=== PATIENT | female | born 1985 | race Two or more races ===

== ENCOUNTER 2023-08-04 02:12 | Emergency (ER) | payer MEDICAID, OTHER ==
[~2023-08-04] VITALS: Ht 154.9 cm; Wt 138.0 kg
[2023-08-04 03:13] LABS: Urine Bacteria FEW /hpf (None Seen); Urine Blood Negative /uL (Negative); Urine Clarity Clear (Clear); Urine Color Yellow (Yellow); Urine Mucus FEW (None Seen); Urine Protein, UAD TRACE (Negative); Urine Specific Gravity 1.026 (1.001-1.035); Urine Urobilinogen Normal (Negative); Urine WBC 1 /hpf (0 - 5)
[2023-08-04 03:26] LABS: Basophils # (auto) 0.1 10 ^3/uL (0-0.2); Basophils % (auto) 0.7 % (0.0-2.0); Eosinophils # (auto) 0.3 10 ^3/uL (0-0.8); Neutrophils % (auto) 72.7 % (37.0-80.0)
[2023-08-04 03:28] LABS: Hematocrit 39.1 % (36.0-46.0); Hemoglobin 12.4 g/dL (12.2-16.2); Lymphocytes # (auto) 2.2 10 ^3/uL (0.4-5.4); Lymphocytes % (auto) 16.8 % (10.0-50.0); Mean Corpuscular Hemoglobin 25.4 pg (28.0-32.0); Mean Corpuscular Hgb Conc. 31.7 g/dL (32.0-36.0); Mean Corpuscular Volume 80.2 fL (80.0-100.0); Monocytes % (auto) 7.8 % (0.0-12.0); Neutrophils # (auto) 9.5 10 ^3/uL (1.6-8.6); Red Blood Cells 4.87 10^6/uL (4.0-5.20); Red Cell Distribution Width 16.2 % (11.8-14.3); White Blood Cell 13.1 10^3/uL (4.4-10.8)
[2023-08-04 03:55] LABS: Alanine Aminotransferase 10 U/L (7-40); Albumin 4.2 g/dL (3.2-4.8); Alkaline Phosphatase 83 U/L (46-116); Anion Gap 3 (5-15); Aspartate Aminotransferase < 8 U/L (13-40); BUN/Creatinine Ratio 22.2 (10.0-20.0); Bilirubin, Total 0.2 mg/dL (0.2-1.0); Blood Urea Nitrogen 14 mg/dL (9-23); Calcium 8.9 mg/dL (8.7-10.4); Carbon Dioxide 27 mmol/L (20-30); Chloride 107 mmol/L (98-107); Glucose 134 mg/dL (74-106); Lipase 35 U/L (12-53); Sodium 137 mmol/L (136-145); Total Protein 7.3 g/dL (5.7-8.2)
[2023-08-04] MEDS ORDERED: LEVO500T91 PO (05:13)
[2023-08-04] MEDS ORDERED: METR-344 PO (05:13)
[2023-08-04] MEDS: metroNIDAZOLE 500 MG TAB PO ONE (05:33)
[2023-08-04] MEDS: levoFLOXacin 500 MG TAB PO ONE (05:33)
[2023-08-04 05:36] VITALS: BP 148/98; PULSE 101; RESP 18; TEMP 98.2; O2SAT 97
== END 2023-08-04 05:37 | disposition home or self-care (01) ==
LOC: ER 02:12
DX: K57.32 Diverticulitis of large intestine without perforation or abscess without bleeding (principal); Z90.49 Acquired absence of other specified parts of digestive tract
CPT/HCPCS: 36415; 74176; 80053; 81001; 83690; 85025

== ENCOUNTER 2024-05-23 09:13 | Emergency (ER) | payer MEDICAID ==
[~2024-05-23] VITALS: Ht 154.9 cm; Wt 131.1 kg
[~2024-05-23 09:13] MED LIST: LEVO500T91 PO; METR-344 PO
[2024-05-23] MEDS: ALPRAZolam 0.25 MG TAB PO ONE (10:49)
[2024-05-23] MEDS: ONDANSETRON ODT 4 MG TAB PO ONE (10:50)
[2024-05-23] MEDS: MECLIZINE HCL 25 MG TAB PO ONE (10:50)
[2024-05-23 11:32] LABS: Mean Corpuscular Volume 81.6 fL (80.0-100.0); Monocytes # (auto) 0.6 10 ^3/uL (0-1.3); Neutrophils # (auto) 6.7 10 ^3/uL (1.6-8.6)
--- NOTE | 2024-05-23 11:32 | ED.PDOC ---
HPI (NEURO) HPI Comments 39y F who presents to the ED for chief complaint of dizziness. Pt states she has been having dizziness for the past 2 days. Pt states she has felt the room spinning and has felt unsteady on her feet for the past 2 days. Pt states pt family has been sick with noted cough, flu-like symptoms and congestions. Pt has been having associated nausea and vomiting episodes getting worse over this time period. Pt is alert and oriented x 4. Pt in the ED, has noted temp of 98.7F an 95% 02 sat on room air. Pt otherwise denies any other symptoms at this time. 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 History Social History Smoker: Non-Smoker Alcohol: Denies ETOH Use Drugs: Denies Drug Use Lives In: Home Constitutional: reports: fever; denies: chills, diaphoresis, fatigue, malaise, sweats, weakness, others EENTM: denies: blurred vision, double vision, ear bleeding, ear discharge, ear drainage, ear pain, ear ringing, eye pain, eye redness, hearing loss, mouth pain, mouth swelling, nasal discharge, nose bleeding, nose congestion, nose pain, photophobia, tearing, throat pain, throat swelling, voice changes, others Respiratory: reports: cough, others (congestion); denies: hemoptysis, orthopnea, SOB at rest, shortness of breath, SOB with excertion, stridor, wheezing Cardiovascular: denies: chest pain, dizzy spells, diaphoresis, Dyspnea on exertion, edema, irregular heart beat, left arm pain, lightheadedness, palpitations, PND, syncope, others Gastrointestinal: reports: nausea, vomiting; denies: abdomen distended, abdominal pain, blood streaked bowels, constipated, diarrhea, dysphagia, difficulty swallowing, hematemesis, melena, poor appetite, poor fluid intake, rectal bleeding, rectal pain, others Genitourinary: denies: abnormal vagina bleeding, burning, dyspareunia, dysuria, flank pain, frequency, hematuria, incontinence, pain, , vagina discharge, urgency, others Neurological: reports: dizziness; denies: fainting, headache, left sided numbness, left sided weakness, numbness, paresthesia, pre-existing deficit, right sided numbness, right sided weakness, seizure, speech problems, tingling, tremors, weakness, others Musculoskeletal: denies: back pain, gout, joint pain, joint swelling, muscle pain, muscle stiffness, neck pain, others Integumetry: denies: bruises, change in color, change in hair/nails, dryness, laceration, lesions, lumps, rash, wounds, others Allergic/Immunocompromised: denies: Difficulty Healing, Frequent Infections, Hives, Itching, others Hematologic/Lymphatic: denies: anemia, blood clots, easy bleeding, easy bruising, swollen glands, others Endocrine: denies: excessive hunger, excessive sweating, excessive thirst, excessive urination, flushing, intolerance to cold, intolerance to heat, unexplained weight gain, unexplained weight loss, others Psychiatric: denies: anxiety, bipolar disorder, depression, hopeless, panic disorder, schizophrenia, sleepless, suicidal, others All Other Systems: Reviewed and Negative Physical Exam General Appearance: No Apparent Distress, Normal HEENT: Normal ENT Inspection, Pharynx Normal, TMs Normal Neck: Full Range of Motion, Non-Tender, Normal, Normal Inspection Respiratory: Chest Non-Tender, Lungs Clear, No Accessory Muscle Use, No Respiratory Distress, Normal Breath Sounds Cardiovascular: No Edema, No JVD, No Murmur, No Gallop, Normal Peripheral Pulses, Regular Rate/Rhythm Breast Exam: Deferred Gastrointestinal: No Organomegaly, Non Tender, No Pulsatile Mass, Normal Bowel Sounds, Soft Genitalia: Deferred Pelvic: Deferred Rectal: Deferred Extremities: No calf tenderness, Normal capillary refill, Normal inspection, Normal range of motion, Non-tender, No pedal edema Musculoskeletal : Apperance: Normal 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 Was a procedure done?: No Differential Diagnosis (SZ) General Weakness: CVA, Dehydration, Electrolyte imbalance, Labyrinthitis, Meniere's disease, TIA, VBI, Vertigo: central, Vertigo: peripheral, Vestibular neuronitis Headache: Migraine, Sinusitis, Other (Influenza A and N,viral syndrome, ) X-Ray, Labs, Meds, VS Vital Signs Date Time Temp Pulse Resp B/P (MAP) Pulse Ox O2 Delivery O2 Flow Rate FiO2 05/23/24 10:49 86 18 95 Room Air 05/23/24 10:49 98.7 86 18 138/85 (102) 95 98.7 05/23/24 09:52 98.1 86 18 171/111 (131) 98 05/23/24 09:50 90 Lab Test 05/23/24 11:10 05/23/24 09:47 Range/Units White Blood Count 9.1 4.4-10.8 10^3/uL Red Blood Count 5.08 4.0-5.20 10^6/uL Hemoglobin 13.8 12.2-16.2 g/dL Hematocrit 41.5 36.0-46.0 % Mean Corpuscular Volume 81.6 80.0-100.0 fL Mean Corpuscular Hemoglobin 27.1 L 28.0-32.0 pg Mean Corpuscular Hemoglobin Concent 33.2 32.0-36.0 g/dL Red Cell Distribution Width 15.9 H 11.8-14.3 % Platelet Count 346 140-450 10^3/uL Mean Platelet Volume 7.9 6.9-10.8 fL Neutrophils (%) (Auto) 73.9 37.0-80.0 % Lymphocytes (%) (Auto) 18.3 10.0-50.0 % Monocytes (%) (Auto) 6.8 0.0-12.0 % Eosinophils (%) (Auto) 0.6 0.0-7.0 % Basophils (%) (Auto) 0.4 0.0-2.0 % Neutrophils # (Auto) 6.7 1.6-8.6 10 ^3/uL Lymphocytes # (Auto) 1.7 0.4-5.4 10 ^3/uL Monocytes # (Auto) 0.6 0-1.3 10 ^3/uL Eosinophils # (Auto) 0.1 0-0.8 10 ^3/uL Basophils # (Auto) 0 0-0.2 10 ^3/uL Nucleated Red Blood Cells 0.1 % Sodium Level 140 136-145 mmol/L Potassium Level 3.5 3.5-5.1 mmol/L Chloride Level 105 98-107 mmol/L Carbon Dioxide Level 28 20-31 mmol/L Anion Gap 7 5-15 Blood Urea Nitrogen 12 9-23 mg/dL Creatinine 0.68 0.550-1.02 mg/dL Glomerular Filtration Rate Calc 115 >90 mL/min BUN/Creatinine Ratio 17.6 10.0-20.0 Serum Glucose 97 74-106 mg/dL Calcium Level 9.6 8.7-10.4 mg/dL Beta HCG, Quantitative 1.4 L 1.5-4.2 mIU/mL POC Glucose 98 70-106 mg/dl Current Medications Medications (Trade) Dose Ordered Sig/Nicholas Route Start Time Stop Time Status Last Admin Meclizine HCl (Antivert Tablet) 25 mg ONCE ONCE PO 05/23/24 10:30 05/23/24 10:31 DC 05/23/24 10:50 Alprazolam (Xanax Tablet) 0.25 mg ONCE ONCE PO 05/23/24 10:30 05/23/24 10:31 DC 05/23/24 10:49 Ondansetron HCl (Zofran Po) 4 mg ONCE ONCE PO 05/23/24 10:30 05/23/24 10:31 DC 05/23/24 10:50 Time of 1ST Reevaluation: 11:55 Reevaluation 1ST: Unchanged Time of 2ND Reevaluation: 13:01 Reevaluation 2ND: Improved Patient Education/Counseling: Diagnosis, Treatment, Prognosis, Need For Follow Up Family Education/Counseling: Diagnosis, Treatment, Prognosis, Need For Follow Up Additional Information - I reviewed the following notes from patient's past medical encounters: - The following tests were ordered, and results were reviewed by me: (Labs, X-Ray, EKG): EKG x1, beta HCG, CT head without contrast, CBC, BMP, - Additional information was gathered from interviewing the following independent Historian: (Family): spouse - I reviewed and agreed with the following test results read by other provider: ( CT): radiologist - I discussed treatments and results with medical personnel and: (family) pt is feeling improved. she is not ataxic and has a normal workup, including a head ct. she declined admission and would like to go home. i offered her admission for further observation until her symptoms are resolved, since we would need a MRI to r.o cerebellar infarcts Departure 1 Departure Time of Disposition: 13:03 Impression: Primary Impression: Vertigo Disposition: 01 HOME / SELF CARE / HOMELESS Condition: Stable e-Prescriptions Alprazolam (Xanax) 0.25 Mg Tb 1 TAB PO BID PRN, #6 TAB Prov: BACILIO SILVERIO MD 05/23/24 Ondansetron Odt 4MG Tab (ZOFRAN PO) 4 Mg Tb 4 MG PO Q4HP PRN for 3 Days, #15 TAB ODT TAB-DISSOLVE IN MOUTH, THEN SWALLOW Prov: BACILIO SILVERIO MD 05/23/24 Meclizine HCl (Meclizine 25) 25 Mg Tab 25 MG PO Q4HP PRN for 3 Days, #15 TAB Prov: BACILIO SILVERIO MD 05/23/24 Discharged With: Self, Relative Critical Care Note Critical Care Time?: Yes (55 min-critical care time only) Critical care comment: due to concerns for patient's condition deterioration, the care required my highest attention and readiness to intervene. i spoke to the family, patient, reviewed any records, ordered the appropriate tests and treatments, reviewed the results, response and communicated with medical personnel, formulated a plan of care. critical care time does not include any procedures Stability Stability form required: No Heart Score Heart Score: Heart Score Response (Comments) Value History N/A 0 EKG N/A 0 Age N/A 0 Risk Factors N/A 0 Troponin N/A 0 Total 0 I personally scribed for BACILIO SILVERIO MD ([email or web address]) on 05/23/24 at 11:32. Electronically submitted by Shira Blue ([email or web address]). BACILIO SILVERIO MD May 23, 2024 11:32
[2024-05-23 11:34] LABS: Basophils # (auto) 0 10 ^3/uL (0-0.2); Basophils % (auto) 0.4 % (0.0-2.0); Eosinophils # (auto) 0.1 10 ^3/uL (0-0.8); Eosinophils % (auto) 0.6 % (0.0-7.0); Hematocrit 41.5 % (36.0-46.0); Hemoglobin 13.8 g/dL (12.2-16.2); Lymphocytes # (auto) 1.7 10 ^3/uL (0.4-5.4); Lymphocytes % (auto) 18.3 % (10.0-50.0); Mean Corpuscular Hemoglobin 27.1 pg (28.0-32.0); Mean Corpuscular Hgb Conc. 33.2 g/dL (32.0-36.0); Monocytes % (auto) 6.8 % (0.0-12.0); Neutrophils % (auto) 73.9 % (37.0-80.0); Nucleated Red Blood Cells % 0.1 %; Platelet Count (auto) 346 10^3/uL (140-450); Red Blood Cells 5.08 10^6/uL (4.0-5.20); Red Cell Distribution Width 15.9 % (11.8-14.3); White Blood Cell 9.1 10^3/uL (4.4-10.8)
[2024-05-23 11:44] LABS: Chloride 105 mmol/L (98-107); Sodium 140 mmol/L (136-145)
[2024-05-23 11:45] LABS: Anion Gap 7 (5-15); Calcium 9.6 mg/dL (8.7-10.4); Carbon Dioxide 28 mmol/L (20-31); Potassium 3.5 mmol/L (3.5-5.1)
[2024-05-23 11:50] LABS: BUN/Creatinine Ratio 17.6 (10.0-20.0); Blood Urea Nitrogen 12 mg/dL (9-23); Glucose 97 mg/dL (74-106)
--- NOTE | 2024-05-23 12:37 | DVH ---
EXAM: CT HEAD WITHOUT CONTRAST HISTORY: vertigo COMPARISON: None TECHNIQUE: Axial images were obtained and reformatted in coronal and sagittal planes. All CT scans at this medical facility are performed using dose modulation techniques as appropriate t o a performed exam including the following: Automated exposure control was utilized; adjustment of th e MA and/or KV according to patient size; and use of iterative reconstruction technique. CT Dose: CTDI volume is 57.43 mGy. Dose-length product is 1016.72 mGy*cm FINDINGS: Supratentorial Region: No evidence for large acute territorial ischemia. No intracranial hemorrhage is noted. Posterior Fossa: No acute abnormality. Brainstem: Unremarkable. Sellar/Suprasellar Region: Unremarkable. Ventricles, Cisterns, Sulci: Age-appropriate. Orbits: Unremarkable. Paranasal Sinuses: Small mucous retention cyst is seen in the left maxillary sinus. Mastoid Air Cells: Unremarkable. Vasculature: Unremarkable. Bones/Soft Tissues: No acute abnormality. Other: None. IMPRESSION: 1. No acute intracranial process.
[2024-05-23] MEDS ORDERED: ZOFR4T PO (13:05)
[2024-05-23] MEDS ORDERED: ALPR0.25 PO (13:05)
[2024-05-23] MEDS ORDERED: MECL1TAB42 PO (13:05)
[2024-05-23 13:38] VITALS: BP 156/102; PULSE 82; RESP 16; TEMP 98; O2SAT 98
--- NOTE | 2024-05-23 14:28 | ECG ---
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
== END 2024-05-23 13:46 | disposition home or self-care (01) ==
LOC: ER 09:13
DX: R42 Dizziness and giddiness (principal); Z90.49 Acquired absence of other specified parts of digestive tract; Z98.890 Other specified postprocedural states
CPT/HCPCS: 36415; 70450; 80048; 82962; 84702; 85025; 93005; 99284; J8597; Q0162